=== PATIENT | male | born 1970 | race Caucasian/White ===

== ENCOUNTER 2016-04-19 18:19 | Emergency (ER) | payer OTHER ==
[~2016-04-19] VITALS: Ht 182.9 cm; Wt 99.8 kg
--- NOTE | 2016-04-19 18:55 | ED AMS/SEIZURE/WEAK/DIZZY ---
History of Present Illness General Chief Complaint: General Adult Stated Complaint: "MY HEART IS BEATING WEIRD" SOB, LIGHTHEADED Source: patient Exam Limitations: no limitations Allergies Coded Allergies: NO KNOWN ALLERGIES (04/19/16) Triage Note: TRIAGE: 46 Y/O MALE PRESENTS C/O "HEART RACING, FEELING WEIRD". REPORTS DRANK ETOH LAST NIGHT, "JUST DOESN'T FEEL RIGHT NOW." APPEARS FLUSHED - RATE 106. PATIENT TO ROOM 9 AT THIS TIME. Triage Nurses Notes Reviewed? yes HPI: 46-year-old male here with complaints of feeling lightheaded and mildly dizzy with palpitations and pounding heart rate, felt his heart beating faster than normal. Started this afternoon. He states he was drinking heavily last night due to [place] but he is not a usual drinker. He denies any fever or flulike illness. Denies any chest pain. Denies any cough or congestion. Denies any abdominal pain (AZALEA DUNN) Vital Signs & Intake/Output Vital Signs & Intake/Output Vital Signs Date Time Temp Pulse Resp B/P Pulse O2 O2 Flow FiO2 Ox Delivery Rate 04/19 2005 97.5 80 15 142/87 94 04/19 1828 96.6 106 18 157/104 97 Room Air Room Air Past History Travel History Traveled to [place] past 21 day No Medical History Any Pertinent Medical History? none Surgical History Surgical History: none Psychosocial History What is your primary language Panamanian Tobacco Use: Never used ETOH Use: occasional use Illicit Drug Use: denies illicit drug use Family History Hx Contributory? No (AZALEA DUNN) Review of Systems Review of Systems Constitutional: Reports: see HPI. EENTM: Reports: no symptoms. Respiratory: Reports: no symptoms. Cardiovascular: Reports: see HPI. GI: Reports: no symptoms. Genitourinary: Reports: no symptoms. Musculoskeletal: Reports: no symptoms. Skin: Reports: no symptoms. Neurological/Psychological: Reports: no symptoms. Hematologic/Endocrine: Reports: no symptoms. Immunologic/Allergic: Reports: no symptoms. All Other Systems: Reviewed and Negative (ZAALEA DUNN) Physical Exam Physical Exam General Appearance: well developed/nourished Comments: Well-developed well-nourished person in no acute distress HEENT: Normal EENT exam, extraocular motion intact, no nystagmus. Pupils equally round and reactive to light. Nose is atraumatic. External auditory canal and Tympanic membranes clear. Pharynx normal. No swelling or edema. Neck: Supple, no lymphadenopathy, normal range of motion without pain or tenderness Back: Nontender, no CVA tenderness. Full range of motion Cardiovascular: Heart rate around 100 bpm, normal JVP Respiratory: Chest nontender. No respiratory distress. Breath sounds clear to auscultation bilaterally Abdomen: Soft, nontender nondistended, no appreciable organomegaly. Normal bowel sounds. No ascites Extremity: No edema, no calf tenderness to palpation, normal and equal pulses. Neuro: Alert oriented x3, motor sensory normal, cranial nerves II through XII grossly intact. Skin: No appreciable rash on exposed skin, skin is warm and dry. Psych: Mood and affect is normal, memory and judgment is normal. Core Measures ACS in differential dx? Yes CVA/TIA Diagnosis: No Severe Sepsis Present: No Septic Shock Present: No (AZALEA DUNN) Progress Differential Diagnosis: arrythmia, alcohol intoxication, anemia, benign positional vertigo, CVA/stroke, dehydration, drug intoxication, encephalitis, electrolyte imbalance, GI bleed, hypoglycemia, hypoxia, intracranial Hem., intracranial mass/tumor, labrynthitis, meningitis, Meniere's disease, migraine DRAKE, multiple sclerosis, pneumonia, postural hypotension, presyncope, post- traumatic vertigo, sepsis, seizure disorder, subarachnoid Hem., UTI/pyelo, vertebrobasilar insuff Initial ED EKG: NSR, rate (100), no ST T wave changes Rhythm Strip: normal sinus rhythm (90-100 bpm) Comments: Patient treated with IV fluids and IV Zofran. He was reevaluated his heart rate is 80 bpm and his symptoms have resolved. I discussed the possibility of arrhythmia but more than likely this is a mild dehydration due to alcohol use last night. He will follow up with his primary care doctor with any concerning symptoms this week. He will return with any severe symptoms or worsening symptoms.He understands and agrees with plan. (AZALEA DUNN) Plan of Care: Orders Procedure Date/time Status Saline Lock 04/19 1846 Active Telemetry/Rodeo Rider 04/19 1846 Active TROPONIN LEVEL 04/19 1846 Complete MAGNESIUM 04/19 1846 Complete COMPREHENSIVE METABOLIC PANEL 04/19 1846 Complete CBC WITHOUT DIFFERENTIAL 01/01 1847 Complete EKG 04/19 1821 Active Laboratory Tests 04/19/16 1858: Anion Gap 10, Estimated GFR > 60, BUN/Creatinine Ratio 19.0, Glucose 149 H, Calcium 9.3, Magnesium 1.7, Total Bilirubin 1.0, AST 34, ALT 50, Alkaline Phosphatase 47, Troponin I < 0.01, Total Protein 7.0, Albumin 4.2, Globulin 2.8, Albumin/Globulin Ratio 1.5, CBC w Diff NO MAN DIFF REQ, RBC 4.77, MCV 92.0, MCH 31.6 H, RDW 13.1, MPV 9.1, Gran % 76.7 H, Lymphocytes % 14.5 L, Monocytes % 7.4, Eosinophils % 1.0, Basophils % 0.4, Absolute Granulocytes 6.0, Absolute Lymphocytes 1.1 L, Absolute Monocytes 0.6, Absolute Eosinophils 0.1, Absolute Basophils 0, PUBS MCHC 34.4 Departure Departure Disposition: HOME OR SELF CARE Condition: Stable Clinical Impression Primary Impression: Dehydration Secondary Impressions: Tachycardia Referrals: JACKSON TORO,AZALEA Palmer (PCP/Family) Referred to [facility] as new patient No Additional Instructions: Return with feeling lightheaded, dizzy, weak or worsening symptoms if you're going to pass out, any chest pain or shortness of breath. If you have continued mild symptoms, please follow-up with your primary care doctor this week Drink plenty of fluids Departure Forms: Customer Survey General Discharge Information (AZALEA DUNN) PA/BAND INSTRUMENT MAKER Co-Sign Statement Statement: ED Attending supervision documentation- [x] I saw and evaluated the patient. I have also reviewed all the pertinent lab results and diagnostic results. I agree with the findings and the plan of care as documented in the PA's/BAND INSTRUMENT MAKER's documentation. [] I have reviewed the ED Record and agree with the PA's/BAND INSTRUMENT MAKER's documentation. [] Additions or exceptions (if any) to the PAs/BAND INSTRUMENT MAKER's note and plan are summarized below: [] (SERGEY TORO,TIM Capps)
[2016-04-19 19:09] LABS: ABSOLUTE BASOPHIL COUNT 0 /CUMM (0.0-0.2); ABSOLUTE EOSINOPHIL COUNT 0.1 /CUMM (0.0-0.7); ABSOLUTE LYMPH COUNT 1.1 /CUMM (1.2-3.4); ABSOLUTE MONOCYTE COUNT 0.6 /CUMM (0.10-0.60); BASOPHIL % 0.4 % (0.0-2.0); GRANULOCYTE % 76.7 % (42.2-75.2); HEMATOCRIT 43.9 % (42-52); MEAN CORPUSCULAR HGB 31.6 PG (27.0-31.0); MEAN CORPUSCULAR HGB CONC 34.4 G/DL (33.0-37.0); MEAN PLATELET VOLUME 9.1 FL (7.4-10.4); PLATELET COUNT 185 /CUMM (130-400); RBC DISTRIBUTION WIDTH 13.1 % (11.5-14.5); RED BLOOD CELL CT 4.77 /CUMM (4.70-6.10); WHITE BLOOD CELL COUNT 7.8 /CUMM (4.8-10.8)
[2016-04-19 20:06] VITALS: BP 142/87
== END 2016-04-19 20:19 ==
LOC: ERH 18:19
PROVIDERS: Physician Assistant Surgical
DX: E86.0 Dehydration (principal); R00.0 Tachycardia, unspecified
CPT/HCPCS: 93005; 93010; 96374; J2405